=== PATIENT | male | born 1935 | race Caucasian/White ===

== ENCOUNTER 2016-06-08 08:46 | Day surgery (SDC) | payer OTHER, MEDICARE ==
[2016-06-02 09:45] VITALS: BMI 34.0
--- NOTE | 2016-06-02 10:23 | PAT Medication Instructions ---
Service Date Jun 02, 2016. Current Home Medication List Aspirin (Aspirin Ec), 325 MG PO QAM Calcium/Vitamin D (Os-Arian 500 Plus D), 1,250 MG PO QAM Pyziwjnlqjr-Llvclrgskdv-Qbn C- (Glucosamine Chondroitin), 1 CAP PO BID Hydrochlorothiazide (Hctz), 25 MG PO QPM Metoprolol Tartrate (Lopressor) (Lopressor), 50 MG PO BID Multivitamin (Multivitamin), 1 TAB PO QAM Ranitidine HCl (Ranitidine HCl), 150 MG PO BID Simvastatin (Zocor), 40 MG PO BID Medication Instructions For Your Scheduled Surgery Aspirin (Aspirin Ec), 325 MG PO QAM (patient will check with surgeon for instructions) - Hold the following medications 7 days prior to surgery: Rtlvdmrqidu-Jnbqlpxrtmt-Dck C- (Glucosamine Chondroitin), 1 CAP PO BID - Hold the following medications the morning of surgery: Multivitamin (Multivitamin), 1 TAB PO QAM Calcium/Vitamin D (Os-Arian 500 Plus D), 1,250 MG PO QAM - Take the following medications the morning of surgery with a sip of water: Simvastatin (Zocor), 40 MG PO BID Ranitidine HCl (Ranitidine HCl), 150 MG PO BID Metoprolol Tartrate (Lopressor) (Lopressor), 50 MG PO BID - Take the following medications as scheduled the night before surgery: Simvastatin (Zocor), 40 MG PO BID Ranitidine HCl (Ranitidine HCl), 150 MG PO BID Metoprolol Tartrate (Lopressor) (Lopressor), 50 MG PO BID Hydrochlorothiazide (Hctz), 25 MG PO QPM If you have any questions please call us at [phone] or [phone] ( [place]) or [phone]
[2016-06-02 11:31] LABS: BASO % 0.6 %; BASO ABS # 0.03 K/uL (0-0.2); COMPLETE YES; EOS % 3.6 %; HEMATOCRIT 40.8 % (42-52); IG% 0.2 %; LYMPH % 22.5 %; MEAN CORPUSCULAR HEMOGLOBIN 32.5 pg (25-34); MEAN CORPUSCULAR HGB CONC 34.6 g/dl (32-36); MEAN PLATELET VOLUME 10.6 fL (7.4-10.4); MONO % 10.7 %; NEUT % 62.4 %; PLATELET COUNT 208 K/uL (130-400); RED BLOOD COUNT 4.34 M/uL (4.7-6.1); WHITE BLOOD COUNT 5.34 K/uL (4.8-10.8)
[~2016-06-08] VITALS: Ht 167.6 cm; Wt 95.5 kg
[~2016-06-08 08:46] MED LIST: ASPI325T39 PO; CALC500C70 PO; CEFAZOLIN 2000 MG/60 ML D5W IV SCH; GLUC1CAP35 PO; HYDR25TA4 PO; LACTATED RINGER'S 1000ML 1,000 ML IV SCH; METO50TA16 PO; MULT-506 PO; RANI150T2 PO; SIMV40TA2 PO
[2016-06-08 09:35] VITALS: BP 161/76; PULSE 82; TEMP 36.9; O2SAT 97; Ht 167.6 cm; Wt 95.5 kg
[2016-06-08] MEDS ORDERED: ONDANSETRON INJ 2 MG/ML 2 ML VIAL ONE (10:07)
[2016-06-08] MEDS ORDERED: LIDOCAINE HCL 2% 2 ML VIAL (20MG/ML) ONE (10:07)
[2016-06-08] MEDS ORDERED: FENTANYL CITRATE INJ 50 MCG/1 ML 2 ML VIAL ONE (10:07)
[2016-06-08] MEDS ORDERED: DEXAMETHASONE SOD INJ 4 MG/ML VIAL ONE (10:07)
[2016-06-08] MEDS ORDERED: PROPOFOL IV EMULSION 10 MG/ML 20 ML VIAL IV ONE (10:07)
--- NOTE | 2016-06-08 11:27 | History & Physical Bridge Note ---
H&P Re-Evaluation Bridge Note: I have examined the patient, reviewed the History & Physical and in the interval since the performance of the History & Physical I have noted the following changes of clinical significance: No changes noted
[2016-06-08] MEDS ORDERED: ROCURONIUM BROMIDE 10 MG/ML 5 ML VIAL ONE (11:56)
[2016-06-08] MEDS ORDERED: NEOSTIGMINE METHYLSULFATE 5 MG/5 ML SYR ONE (11:56)
[2016-06-08] MEDS ORDERED: METOPROLOL TARTRATE 1 MG/ML VIAL ONE (11:56)
[2016-06-08] MEDS ORDERED: GLYCOPYRROLATE INJ 0.2 MG/ML VIAL ONE (11:56)
[2016-06-08] MEDS ORDERED: BELLADONNA/OPIUM SUPP 60 MG SUPP PR ONE (12:04)
[2016-06-08] MEDS ORDERED: BELLADONNA/OPIUM 60 MG SUPP PR ONE (12:07)
--- NOTE | 2016-06-08 12:27 | [facility] Operative Report ---
Operative Report Operative Date Jun 08, 2016. Pre-Operative Diagnosis T1, Grade 3 bladder cancer, repeat resection Post-Operative Diagnosis same Procedure(s) Performed turbt medium dilation of urethral strictures, placement of difficult melvin over wire Surgeon Dr Jacome Electrotype Servicer Surgeon(s) none Estimated Blood Loss 5mL Findings red raised tissue 35mm round on left lateral wall of bladder Fluids 700mL Specimens A: left lateral bladder tumor repeat resection, T1, Grade 3 Drains 18 fr [place] tip melvin Anesthesia GET Complication(s) None Disposition Recovery Room / PACU Indications patient with new diagnosis T1G3 urothelial cancer left lateral wall at outside hospital. he is due for repeat resection to ensure complete cancer removal. Description of Procedure Patient was given GET anesthesia with paralysis and placed in lithotomy position. His genitals were prepped and draped in sterile fashion. Time out held with team. 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 I then used a [address] stiff wire thru true lumen and pass scope over wire dilating the strictures as I went. I was then able to pass the 26 fr resectoscope along side the wire under vision. The prostate is large with a middle lobe elevating the bladder neck. The UOs are normal position. I used the thin lop and the bipolar system with saline irrigation to resect the 35mm round red raised lesion left lateral wall. I sampled muscle without perforation. I used cautery for hemostasis. I rinsed out bladder tumor ships and sent them for path review. left bladder full and removed scope. I passed 18 fr [place] tip melvin over wire and secured it with 10mL water in balloon. It was connected to gravity closed drainage. I concluded case. I placed a belladonna and opium suppository for post-op pain. He transferred to recovery under my escort, in stable condition. Plan: Home today with melvin Pyridium for dysuria x 3 days melvin out at home Monday am. 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 Any exceptions are noted below.
[2016-06-08] MEDS ORDERED: PHEN-775 PO (12:28)
[2016-06-08] MEDS ORDERED: OXYC-57 PO (12:28)
--- NOTE | 2016-06-08 12:33 | Discharge Instructions ---
Discharge Instructions Admission Reason for Admission: Malignant Neoplasm Of Bladder Discharge Discharge Diagnosis / Problem: bladder cancer, urethral stricture Discharge Goals Goal(s): Improve disease control Activity Recommendations Activity Limitations: as noted below Lifting Limitations: no more than 25 pounds (for 4 weeks) Exercise/Sports Limitations: until after follow-up appointment May Resume Sexual Activity: when tolerated Shower/Bathe: no limitations Driving or Machine Use: resume 1 day after discharge . Instructions / Follow-Up Instructions / Follow-Up path discussion in office in 7-10 days remove the melvin catheter on monday am. call the answering service [phone] if you are not urinating well by noon. urine will be bloody for weeks Discharge Diet Recommended Diet: Regular Diet Procedures Procedures Performed: Transurethral resection of bladder cancer dilation of urethral strictures placement of difficult melvin catheter over a wire Pending Studies Studies pending at discharge: yes List of pending studies: pathology Work Instructions Return To Work: 1 week Lifting Limitations: no more than 20 pounds (for 4 weeks) Medical Emergencies . Who to Call and When: Medical Emergencies: If at any time you feel your situation is an emergency, please call 911 immediately. . Non-Emergent Contact Non-Emergency issues call your: Urologist ([phone] M-F 8a - [phone]) . . "Provider Documentation" section prepared by Elin Jacome. VTE Core Measure Inpt VTE Proph given/why not?: [place]CD's [place] Drug Monitoring Program Search Results: patient reviewed within database, no issues identified
[2016-06-08] MEDS ORDERED: ATROPINE SULFATE 0.1 MG/ML 5ML SYR IV PRN (12:45)
[2016-06-08] MEDS ORDERED: EpHEDrine SULFATE INJ 50 MG/ML AMP IV PRN (12:45)
--- NOTE | 2016-06-08 12:46 | Anesthesiology Progress Note ---
Anesthesia Post Op Note Date & Time Jun 08, 2016 at 12:46 Vital Signs Pain Intensity: 0 Vital Signs Past 12 Hours Date Time Temp Pulse Resp B/P Pulse Ox O2 Delivery O2 Flow Rate FiO2 06/08/16 12:45 70 16 175/80 99 Nasal Cannula 4 06/08/16 12:35 66 16 182/89 98 Nasal Cannula 4 06/08/16 12:25 68 16 181/93 98 Nasal Cannula 4 06/08/16 12:21 36.1 69 20 201/98 97 Nasal Cannula 4 06/08/16 09:35 36.9 82 18 161/76 97 Room Air Notes Mental Status: alert / awake / arousable, participated in evaluation Pt Amnestic to Procedure: Yes Nausea / Vomiting: adequately controlled Pain: adequately controlled Airway Patency, RR, SpO2: stable & adequate BP & HR: stable & adequate Hydration State: stable & adequate Anesthetic Complications: no major complications apparent
[2016-06-08 13:00] VITALS: BP 168/74; PULSE 69; TEMP 37; O2SAT 100
[2016-06-08 13:30] VITALS: BP 189/80; PULSE 76; TEMP 37; O2SAT 100
[2016-06-08] MEDS ORDERED: SUCCINYLCHOLINE CHLORIDE 20 MG/ML 10 ML VIAL IV ONE (13:56)
[2016-06-08 14:10] VITALS: BP 180/83; PULSE 74; TEMP 36.1; O2SAT 100
== END 2016-06-08 14:45 | disposition home or self-care (01) ==
LOC: C.ACU 08:46
PROVIDERS: ATTEND Urology
DX: D09.0 Carcinoma in situ of bladder (principal); I10 Essential (primary) hypertension; I25.10 Atherosclerotic heart disease of native coronary artery without angina pectoris; K21.9 Gastro-esophageal reflux disease without esophagitis; Z95.1 Presence of aortocoronary bypass graft; Z87.891 Personal history of nicotine dependence

== ENCOUNTER → 2017-04-12 | Day surgery (SDC) | payer OTHER, MEDICARE ==
[2017-04-04 08:46] VITALS: BMI 32.0
[~2017-04-12] VITALS: Ht 167.6 cm; Wt 90.9 kg
[~2017-04-12] MED LIST changes: +ATROPINE SULFATE 0.1 MG/ML 5ML SYR IV PRN; +BELLADONNA/OPIUM SUPP 60 MG SUPP PR ONE; -CEFAZOLIN 2000 MG/60 ML D5W IV SCH; +CEFAZOLIN SOD 2000MG/10 ML IV PUSH IV ONE; +CONRAY 30% 150ML BOTTLE ONE; +EpHEDrine SULFATE INJ 50 MG/ML AMP IV PRN; +FENTANYL CITRATE INJ 50 MCG/1 ML 2 ML VIAL ONE; +GLYCOPYRROLATE INJ 0.2 MG/ML VIAL ONE; +HYDR-5688 PO; +KETOROLAC TROMETHAMINE 30 MG/ML VIAL ONE; +LIDOCAINE HCL 2% 2 ML VIAL (20MG/ML) ONE; +NURSING VERBAL MED ORDER ONE; +ONDANSETRON INJ 2 MG/ML 2 ML VIAL ONE; +PHEN-775 PO; +PROPOFOL IV EMULSION 10 MG/ML 20 ML VIAL IV ONE; +TAMS0.4C38 PO
[2017-04-12 09:17] VITALS: BP 138/60; PULSE 58; TEMP 36.7; O2SAT 96; Ht 167.6 cm; Wt 90.9 kg
--- NOTE | 2017-04-12 10:00 | History and Physical ---
History & Physical Date Apr 12, 2017. Chief Complaint left distal ureter thickening History of Present Illness The patient is a 81 year old male with new finding of left distal ureteral thickening found on staging ct scan. he has had left wall bladder cancer TaG3 resected last spring 2016. We plan left uscope to investigate for ureteral tumor. Additional History Hepatic Disease: No Endocrine Disorder: No Kidney Disease: No Hypertension: Yes Heart Disease: Yes Bleeding Tendencies: No Infectious Diseases: No Allergies Coded Allergies: Fab (Verified Allergy, Unknown, ANAPHYLAXIS, 04/12/17) NO KNOWN DRUG ALLERGIES (Verified Allergy, Unknown, NKDA, 04/12/17) POLLEN (Verified Allergy, Unknown, SNEEZING, 04/12/17) Watermelon (Verified Allergy, Unknown, ANAPHYLAXIS, 04/12/17) Home Medications Scheduled Aspirin (Aspirin Ec), 162.5 MG PO QAM Calcium/Vitamin D (Os-Arian 500 Plus D), 500 MG PO QAM Hvjgweiafkl-Kzxrmdvxinf-Qnd C- (Glucosamine Chondroitin), 1 CAP PO BID Hydrochlorothiazide (Hctz), 25 MG PO QPM Metoprolol Tartrate (Lopressor) (Lopressor), 50 MG PO BID Multivitamin (Multivitamin), 1 TAB PO QAM Ranitidine HCl (Ranitidine HCl), 150 MG PO BID Simvastatin (Zocor), 40 MG PO BID Physical Examination Skin: warm/dry, no rash Eyes: normal inspection, sclerae normal Head: normocephalic Neck: supple, no adenopathy, trachea midline Respiratory/Chest: lungs clear, normal breath sounds, no respiratory distress Cardiovascular: regular rate, rhythm, no edema Abdomen / GI: non tender Extremities: normal inspection, normal range of motion Neurologic/Psych: no motor/sensory deficits, alert, oriented x 3 Diagnosis left ureteral thickening, suspicious for ureteral tumor ASA Classification: ASA Class III Plan of Treatment plan cysto left ureteroscopy possible biopsy possible stent 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
--- NOTE | 2017-04-12 11:41 | [facility] Operative Report ---
Operative Report Operative Date Apr 12, 2017. 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 Jacome Manager Of Care Surgeon(s) NONE Estimated Blood Loss 1ml Findings round red spots in bladder consistent with bcg treatment effect, no papillary tumor, 2 left UOs, one right UO, normal retrograde pyelograms Fluids 700mL Specimens None per surgeon Drains none Anesthesia LMA Complication(s) None Disposition Recovery Room / PACU Indications h/o high grade left wall bladder tumor, staging ct showed thickening of left distal ureter. Description of Procedure Patient was given general LMA anesthesia and placed in lithotomy position. His genitals were prepped and draped in sterile fashion. Time out held with team. I placed a 21 fr rigid cystoscope to bladder. The urethra is remarkable for near quick urethral pale dense stricture. It is tight to the 21 fr rigid cystoscope. The prostate is trilobar but short. The UOs are normal on right and there are 2 ureters on left the more distal one lateral to the more proximal one which is in a normal location on trigonal ridge. Both efflux clear urine. There are red round patches of flat urothelium, consistent with bcg treatment effect. There is no papillary tumor seen. I passed the 5 fr open ended into the lateral distal UO and performed a retrograde pyelogram. it fills a plump but smooth distal ureter and the upper pole of kidney. there are no filling defects. I then passed a angled road runner wire into the medial proximal ureter. it angles sharply. I did a retrograde and then a ureteroscopy of the lower pole moiety and found a narrow upper ureter an inch out of kidney but no tumor no ureteral wall lesions or tumor. I passed the scope into the upper pole moiety and again find a normal kidney ureter the entire length. I elected not to leave a stent. I left bladder empty buy easily passing a 16 fr coude melvin to drain the bladder then removed cath. I placed a belladonna and opium suppository for post-op pain. He transferred to recovery under my escort, in stable condition. 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 Any exceptions are noted below.
--- NOTE | 2017-04-12 11:45 | Discharge Instructions ---
Discharge Instructions Date of Service Apr 12, 2017. Admission Reason for Admission: Thickening of Left Distal Ureter Discharge Discharge Diagnosis / Problem: normla left distal ureters, complete left ureteral duplication Discharge Goals Goal(s): Learn about illness Activity Recommendations Activity Limitations: resume your previous activity Lifting Limitations: none Exercise/Sports Limitations: none May Resume Sexual Activity: when tolerated Shower/Bathe: no limitations Driving or Machine Use: resume 1 day after discharge . Current Hospital Diet Patient's current hospital diet: Discharge Diet Recommended Diet: AHA Diet (Heart Healthy) Procedures Procedures Performed: Cystoscopy, Left Ureteroscopy, Retrograde Pyleogram of both ureters in a completely duplicated system Pending Studies Studies pending at discharge: no Medical Emergencies . Who to Call and When: Medical Emergencies: If at any time you feel your situation is an emergency, please call 911 immediately. . Non-Emergent Contact Non-Emergency issues call your: Urologist ([phone]) Call Non-Emergent contact if: temperature is above 101, your pain is not controlled . . "Provider Documentation" section prepared by Elin Jacome. . VTE Core Measure Inpt VTE Proph given/why not?: [place] Drug [place] Search Results: patient reviewed within database, no issues identified
--- NOTE | 2017-04-12 11:46 | DIAGNOSTIC IMAGING REPORT ---
RETROGRADE UROGRAM 10 VIEWS CLINICAL HISTORY: Left-sided retrograde study. COMPARISON STUDY: No previous studies for comparison. FINDINGS: 10 fluoroscopic spot images are provided for interpretation. 34 seconds of fluoroscopic time was utilized. The left ureter was catheterized in a retrograde fashion. Contrast was instilled. 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 There is faint opacification of the upper pole moiety. The second years faintly visualized down to near the level of the ureterovesical junction. There is mild narrowing of the left proximal ureter. A left-sided neck ureteral stent was placed in the lower pole moiety. IMPRESSION: 1. 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 Placement of a left-sided nephroureteral stent into the lower pole moiety Electronically signed by: Damaso Iqbal M.D. 04/12/2017 11:44 AM Dictated Date/Time: 04/12/2017 11:41 AM
[2017-04-12] MEDS: FENTANYL CITRATE INJ 50 MCG/1 ML 2 ML VIAL IV PRN ×4 (11:53→12:08)
--- NOTE | 2017-04-12 12:20 | Anesthesiology Progress Note ---
Anesthesia Post Op Note Date & Time Apr 12, 2017 at 12:19 Vital Signs Pain Intensity: 0 Vital Signs Past 12 Hours Date Time Temp Pulse Resp B/P (MAP) Pulse Ox O2 Delivery O2 Flow Rate FiO2 04/12/17 12:15 36.6 55 16 151/74 95 Room Air 04/12/17 12:05 55 16 133/72 94 Room Air 04/12/17 11:55 53 16 152/70 100 Oxymask 10 04/12/17 11:45 56 16 171/79 99 Oxymask 10 04/12/17 11:36 36.3 58 16 165/78 98 Oxymask 10 04/12/17 09:17 36.7 58 16 138/60 (86) 96 Room Air Notes Mental Status: alert / awake / arousable, participated in evaluation Pt Amnestic to Procedure: Yes Nausea / Vomiting: adequately controlled Pain: adequately controlled Airway Patency, RR, SpO2: stable & adequate BP & HR: stable & adequate Hydration State: stable & adequate Anesthetic Complications: no major complications apparent
[2017-04-12 12:35] VITALS: BP 107/53; PULSE 33; TEMP 36.7; O2SAT 96
[2017-04-12 13:05] VITALS: BP 173/77; PULSE 75; TEMP 36.7; O2SAT 95
[2017-04-12 13:35] VITALS: BP 118/59; PULSE 71; TEMP 36.5; O2SAT 97
[2017-04-12 14:35] VITALS: BP 120/65; PULSE 78; O2SAT 97
[2017-04-12 15:35] VITALS: BP 115/60; PULSE 65; TEMP 36.5; O2SAT 98
== END | disposition home or self-care (01) ==
LOC: C.ACU 08:27
PROVIDERS: ATTEND Urology
DX: N28.89 Other specified disorders of kidney and ureter (principal); I25.10 Atherosclerotic heart disease of native coronary artery without angina pectoris; Z95.1 Presence of aortocoronary bypass graft; I10 Essential (primary) hypertension; Z85.51 Personal history of malignant neoplasm of bladder; Z79.82 Long term (current) use of aspirin